=== PATIENT | male | born 1995 | race Hispanic/Latino ===

== ENCOUNTER 2023-02-16 05:32 | Observation (INO) | payer BC, OTHER ==
[2023-02-16] MEDS ORDERED: Dexmedetomidine 200 MCG/2 ML VIAL ONE (06:33)
[2023-02-16] MEDS ORDERED: Fentanyl 250 MCG/5 ML VIAL ONE (06:34)
[2023-02-16] MEDS ORDERED: Midazolam HCl 2 mg/2 ml Vial ONE (06:34)
[2023-02-16] MEDS ORDERED: Lidocaine 1% (PF) 30 ML VIAL ONE (06:47)
[2023-02-16] MEDS ORDERED: Bupivacaine PF 0.5% 30 ML VIAL ONE (06:48)
[2023-02-16] MEDS ORDERED: CEFAZOLIN 2 GM VIAL ONE (06:52)
[2023-02-16] MEDS ORDERED: Sodium Chloride 0.9% 100 ML ONE (06:52)
[2023-02-16] MEDS ORDERED: Bupivacaine HCl 0.5%/Epinephrine 1:200,000/PF 30 ml Vial ONE (07:05)
[2023-02-16] MEDS ORDERED: Rocuronium Bromide 10 MG/ML (10ML VIAL) ONE (07:14)
[2023-02-16] MEDS ORDERED: Dexamethasone 4 mg/ml Vial ONE (07:14)
[2023-02-16] MEDS ORDERED: PROPOFOL 20 ML ONE (07:14)
[2023-02-16] MEDS ORDERED: Ondansetron PF 4 MG/2 ML Vial ONE ×2 (07:14→10:01)
[2023-02-16] MEDS ORDERED: Ondansetron PF 4 MG/2 ML Vial IVP PRN (07:30)
[2023-02-16] MEDS ORDERED: Promethazine HCl 25 MG/ML VIAL IM PRN (07:30)
[2023-02-16] MEDS ORDERED: traMADol HCl 50 MG TAB PO PRN ×2 (07:30)
[2023-02-16] MEDS ORDERED: Zolpidem Tartrate 5 MG TAB PO PRN (07:30)
[2023-02-16] MEDS ORDERED: Ropivacaine 0.2% 550 ML 550 ML NERVE BLCK SCH (07:30)
[2023-02-16] MEDS ORDERED: HYDROcodone/Acetaminophen 10/325 mg Tablet PO PRN ×2 (07:30)
[2023-02-16] MEDS ORDERED: fentaNYL 50 mcg/mL 1 mL Vial ONE (07:39)
[2023-02-16] MEDS ORDERED: Lidocaine 2% PF 5 ML VIAL ONE (08:03)
[2023-02-16] MEDS ORDERED: PHENYLEPHRINE-NS 100 MCG/ML 10 ML SYRINGE ONE (08:03)
[2023-02-16] MEDS ORDERED: SUGAMMADEX SODIUM 200 MG/2 ML VIAL ONE (08:33)
[2023-02-16] MEDS ORDERED: ePHEDrine Sulfate 50 MG/10 ML VIAL ONE (08:38)
[2023-02-16] MEDS ORDERED: Ketorolac Tromethamine 30 MG (1 mL) VIAL ONE (10:07)
[2023-02-16] MEDS ORDERED: Milk Of Magnesia 30 ML UDCUP PO PRN (11:10)
[2023-02-16] MEDS ORDERED: Methocarbamol 500 MG TAB PO PRN (11:10)
[2023-02-16] MEDS ORDERED: diphenhydrAMINE 50 MG CAP PO PRN (11:10)
[2023-02-16] MEDS ORDERED: Methocarbamol 1 GM (10 mL) VIAL SLOW IVP PRN ×2 (11:10→11:27)
[2023-02-16] MEDS ORDERED: Acetaminophen 325 MG TAB PO PRN (11:10)
[2023-02-16] MEDS ORDERED: Bisacodyl 10 MG SUPP PR PRN (11:10)
[2023-02-16] MEDS ORDERED: SODIUM CHLORIDE 0.9% IVPB PRN (11:22)
[2023-02-16] MEDS ORDERED: METHOCARBAMOL IVPB PRN (11:22)
[2023-02-16] MEDS: Ketorolac Tromethamine 30 MG (1 mL) VIAL IVP SCH ×3 (12:33→22:55)
[2023-02-16] MEDS: Lactated Ringer's 1,000 ML IV SCH (14:26)
[2023-02-16] MEDS: CEFAZOLIN 2 GM in Sodium Chloride 0.9% 100 ML IVPB SCH ×2 (16:01→22:56)
[2023-02-16 17:59] VITALS: BMI 26.6
[2023-02-16] MEDS: Famotidine 20 MG TAB PO SCH (22:56)
[2023-02-17] MEDS: Lactated Ringer's 1,000 ML IV SCH (02:57)
[2023-02-17] MEDS: Ketorolac Tromethamine 30 MG (1 mL) VIAL IVP SCH ×2 (06:18→13:04)
[2023-02-17] MEDS: Famotidine 20 MG TAB PO SCH (08:55)
[2023-02-17 11:33] VITALS: BP 119/74; TEMP 97.8
== END 2023-02-17 14:45 | disposition home or self-care (01) ==
LOC: SDC 05:32 → SJJU 12:30
PROVIDERS: ADMIT Orthopaedic Surgery; ATTEND Orthopaedic Surgery
PROC: 0RQK0ZZ Repair Left Shoulder Joint, Open Approach (ICD-10-PCS; principal; 2023-02-16)
DX: S43.432A Superior glenoid labrum lesion of left shoulder, initial encounter (principal); M25.312 Other instability, left shoulder; X58.XXXA Exposure to other specified factors, initial encounter
CPT/HCPCS: A4306; J1100; J1885; J2001; J2250; J2405; J2704; J2795; J3010; J3490; J7120; S0020